=== PATIENT | male | born 1955 | race Caucasian/White ===

== ENCOUNTER 2021-07-04 04:56 | Observation (INO) ==
--- NOTE | 2021-01-27 16:02 | PAT Medication Instructions ---
Medication Instructions Date of Service January 27, 2021 Home Medications amlodipine 10 mg tablet 10 mg PO QAM atorvastatin 40 mg tablet 40 mg PO QAM citalopram 40 mg tablet 40 mg PO QAM furosemide 20 mg tablet 20 mg PO QAM levothyroxine 137 mcg tablet 137 mcg PO QAM losartan 100 mg tablet 100 mg PO QAM metoprolol succinate 25 mg tablet,extended release 24 hr 25 mg PO QAM ibuprofen 200 mg tablet (Advil) 600 mg PO Q6H PRN ASK your surgeon for instructions ibuprofen 200 mg tablet (Advil) 600 mg PO Q6H PRN DO NOT take the morning of surgery furosemide 20 mg tablet 20 mg PO QAM losartan 100 mg tablet 100 mg PO QAM Take morning of surgery With a small sip of water, OTHERWISE NOTHING TO EAT OR DRINK AFTER MIDNIGHT: amlodipine 10 mg tablet 10 mg PO QAM atorvastatin 40 mg tablet 40 mg PO QAM citalopram 40 mg tablet 40 mg PO QAM levothyroxine 137 mcg tablet 137 mcg PO QAM metoprolol succinate 25 mg tablet,extended release 24 hr 25 mg PO QAM Other Notes If you have any questions please call us at [phone] or [phone] or [phone] or [phone]
--- NOTE | 2021-02-02 09:17 | Anesthesiology Consultation ---
Date of Service February 02, 2021 Assessment & Plan (1) Encounter for pre-operative examination: Chart Review Chart Review: Acceptable Risk for Surgery (pending preop Covid testing results ) and Patient NOT seen in Pre Admission Testing Per PAT appt on 02/02/21, patient denies any recent travel or large group activities. No known Covid positive contacts or Covid related symptoms. No known Covid infection in the past 90 days. Pt is vaccinated for Covid. Preop Covid testing scheduled 02/17/21 = will await results. Educated on importance of self quarantining, social distancing and wearing mask in public for the patient one week prior to surgery and after Covid testing done Pt last seen by cardio 02/01/21= seen for routine follow up on LBBB. Pt feeling well and has no cardiac complaints. Suffered recent fall with rib fractures- healing well. Plans for left hip replacement Feb 2021. Patient with mild diffuse cardiomyopathy by echocardiogram. Stress nuclear mobile only fixed abnormalities and no signs of ischemia. Overall functional capacity stable and about 5 METS. Patient on appropriate medical therapies. "No contraindications upcoming surgery as planned" Follow up in six months Teaching & Discussion Pre-Anesthesia Teaching/Discussion Notes: Instructed NPO after midnight before surgery,except medications with 15 cc of water. Medication instructions provided according to the [facility] guidelines. History Surgery Operation Date: 02/21/21 08:50 Proposed Procedures p Total Hip Arthroplasty Uncemented - Lowell Owen MD Height/Weight Height: 6 ft Weight: 141.4 kg Allergies Allergy/AdvReac Type Severity Reaction Status Date / Time oxycodone Allergy Mild rash Verified 01/27/21 13:16 Medications Home Medications Medication Instructions Recorded Confirmed Last Taken amlodipine 10 mg tablet 10 mg PO QAM 01/09/21 01/27/21 01/08/21 atorvastatin 40 mg tablet 40 mg PO QAM 01/09/21 01/27/21 01/08/21 citalopram 40 mg tablet 40 mg PO QAM 01/09/21 01/27/21 01/08/21 furosemide 20 mg tablet 20 mg PO QAM 01/09/21 01/27/21 Unknown levothyroxine 137 mcg tablet 137 mcg PO QAM 01/09/21 01/27/21 01/08/21 losartan 100 mg tablet 100 mg PO QAM 01/09/21 01/27/21 01/08/21 metoprolol succinate 25 mg 25 mg PO QAM 01/09/21 01/27/21 01/08/21 tablet,extended release 24 hr ibuprofen 200 mg tablet (Advil) 600 mg PO Q6H PRN 01/27/21 01/27/21 Unknown Past Medical History Medical History (Updated 02/02/21 @ 12:04 by Che Shaw PA-C) Fracture, ribs S/P FALL-3 RIBS BROKEN-EARLY 01/2021-RESOLVED Denies pain or breathing issues Hyperlipidemia Hypertension LBBB (left bundle branch block) Chronic Prediabetes Per records Sleep apnea CPAP Thyroid disease HYPOTHYROID Exercise / Class Metabolic Activity II 4-5 Yardwork/Stairs/Walk up hill (one flight of stairs - no chest pain or SOB ) Past Surgical History Surgical History History of colonoscopy 2020 Status post right hip replacement Past Anesthesia History No Hx of Anesthesia Complications and No Family Hx of Anesthesia Complications History of PONV No Hx of PONV and No Hx of Motion Sickness Social History Smoking Status: Never smoker Do You Dip or Chew Tobacco: No Hx Alcohol Use: Yes Alcohol type: wine alcohol intake frequency: a few times a week Hx Substance Use: No Review of Systems Patient denies chest pain, shortness of breath, dyspnea on exertion, reflux, cough, wheezing, palpitations. No hx of seizures, stroke, [place]. No hx of blood clots or blood transfusions Physical Exam Vital Signs VITALS BP 144/90 P 70 TEMP 97.9 SP02 94% RESP 16 Constitutional no acute distress ENMT Mouth: no TMJ clicking Thyromental Distance: > or= 3.5 Finger Breadths (3.5) Mallampati Class: II (smaller airway ) Missing molar Neck + short neck, + thick neck and + limited neck extension (minimal ) Respiratory normal respiratory effort; no respiratory distress Auscultation: lungs clear to auscultation bilaterally; no wheezes Cardiovascular Rate/Rhythm: regular rate and regular rhythm Heart Sounds: no murmur Vessels: no carotid bruit Musculoskeletal Spine: no pain with cervical ROM Extremities: extremities normal to inspection Psychiatric Orientation: alert Lab Results Anesthesia Preop Results Results Anesthesia Widget: WBC 6.51 K/uL (4.8-10.8) 01/09/21 Hgb 15.4 g/dL (14.0-18.0) 01/09/21 Hct 45.3 % (42-52) 01/09/21 Plt 233 K/uL (130-400) 01/09/21 Na 137 mmol/L (136-145) 01/09/21 K 4.4 mmol/L (3.5-5.1) 01/09/21 Cl 102 mmol/L (98-107) 01/09/21 CO2 31 mmol/L (21-32) 01/09/21 BUN 13 mg/dl (7-18) 01/09/21 Creat 0.91 mg/dl (0.6-1.4) 01/09/21 Glucose Level 98 mg/dl (70-99) 01/09/21 PT 9.8 Seconds (9.0-12.0) 02/02/21 PTT 27.1 Seconds (21.0-31.0) 02/02/21 INR 1.0 (0.9-1.1) 02/02/21 Urine Color Dark Yellow 01/09/21 Urine Appearance Clear (Clear) 01/09/21 Urine pH 6.0 (4.5-7.5) 01/09/21 Urine Specific Farrar 1.027 (1.000-1.030) 01/09/21 Urine Protein Trace (Negative) H 01/09/21 Urine Glucose (UA) Negative (Negative) 01/09/21 Urine Ketones Trace (Negative) H 01/09/21 Urine Blood Negative (Negative) 01/09/21 Urine Nitrite Negative (Negative) 01/09/21 Urine Bilirubin 1+ (Negative) H 01/09/21 Urine Urobilinogen Negative (Negative) 01/09/21 Urine Leukocyte Esterase Negative (Negative) 01/09/21 Urine WBC (Auto) 1-5 /hpf (0-5) 01/09/21 Urine RBC (Auto) 0-4 /hpf (0-4) 01/09/21 Urine Hyaline Casts (Auto) 1-5 /lpf (0-5) 01/09/21 Urine Epithelial Cells (Auto) 5-10 /lpf (0-5) H 01/09/21 Urine Bacteria (Auto) Negative (Negative) 01/09/21 Blood Type O Negative 02/02/21 Antibody Screen NEGATIVE 02/02/21 Testing Electrocardiogram Date: 06/30/20 Findings: + NSR @ (83bpm) Possible left atrial enlargement. Left axis deviation. LBBB. When compared to EKG from Apr 11, 2020- the axis shifted left per cardio. Chest X-Ray Date: 02/02/21 Findings: + NAD FINDINGS: There is a pectus excavatum deformity. This accounts for the hazy appearance to the right medial lung base on the frontal view. No focal lung consolidations to suggest pneumonia. No evidence for pulmonary edema. The heart is normal in size. No pleural fusions. No pneumothorax. Old posttraumatic changes at the distal left clavicle/acromioclavicular joint. This is also unchanged. IMPRESSION: No significant change compared to the prior study. No acute process. Echocardiogram Date: 04/20/20 EF: 45-49% Other Findings: + LVH (moderate/concentric ) and + diastolic dysfunction (Grade I ) Reason for exam is LBBB LV cavity size is normal. Septal motion is consistent with LBBB. Remaining LV wall segments are borderline HK. LV function mildly reduced. Mild AV sclerosis. Stress Test Date: 05/31/20 Type: nuclear Reason for study: LBBB; EF 45% by recent ECHO There is a medium sized scar involving the inferior and inferior septal sheehan with severe HK of segments. No inducible ischemia is present. Mildly reduced LF function with EF of 47%
--- NOTE | 2021-02-16 22:44 | History and Physical Report ---
DATE OF ADMISSION: 02/21/2021. CHIEF COMPLAINT: Left hip pain. HISTORY OF PRESENT ILLNESS: The patient is a 65-year-old gentleman who is well known to me from a pr evious right hip replacement done on 03/09/2014. Right hip has done great. Over the past 5 years, criss nash has developed increased pain and discomfort in his left hip. He describes groin pain, buttock pain , lateral hip pain radiating down to his knee, but no further. He does have some chronic back pain a s well. No numbness. He has been treated with Advil with minimal relief. He takes occasional Vicod in for his hip. He did have a recent fall and broke some ribs and has recovered from this. He has d ifficulty putting his shoes and socks on. Happy with his right hip and would like to have his left h ip replaced. PAST MEDICAL HISTORY: Significant for, 1. Hypertension. 2. Obesity with a BMI of 42.3. PAST SURGICAL HISTORY: Previous surgeries include right hip replacement done on 03/09/2014. ALLERGIES: PERCOCET. CURRENT MEDICATIONS: Include, 1. Citalopram. 2. Levothyroxine. 3. Atorvastatin. 4. Metoprolol. 5. Losartan. 6. Amlodipine. 7. Furosemide. SOCIAL HISTORY: Significant for a 65-year-old male. He is . He is self employed. He works in [employer]. One to two drinks per day. One child. He does not smoke. FAMILY HISTORY: Significant for heart disease. REVIEW OF SYSTEMS: Negative for diabetes, neurologic problems, vascular problems, or bleeding disord ers. No chest pain or shortness of breath. No history of DVT or PE. PHYSICAL EXAMINATION: GENERAL: Shows a large statured, middle-aged male. HEENT: Benign. NECK: Supple. No lymphadenopathy. LUNGS: Clear to auscultation. HEART: Has a regular rate and rhythm. ABDOMEN: Soft, nontender, nondistended. EXTREMITIES: Grossly neurovascularly intact except as follows: Examination of the left hip reveals the patient walks with a slightly antalgic gait. Leg lengths look pretty equal clinically. He has g ot a very stiff hip with about a 10-degree external rotation contracture. Attempted internal rotatio n creates pain. No knee effusion. He is neurologically intact. Negative straight leg raise. X-RAYS: X-rays of the left hip were reviewed. It shows advanced left hip DJD. He has got complete loss of the superior joint space with fairly concentric disease. He has got osteophytes around the f emoral head and acetabulum. ASSESSMENT: A 65-year-old male with multiple medical comorbidities including hypertension, obesity w ith underlying heart disease, now 6-1/2 years out from right hip replacement with advanced left hip d egenerative joint disease. He has failed conservative treatment and would like to have his left hip replaced. PLAN: We are going to take him to the operating room and do a left total hip replacement. The risks and benefits of this procedure were explained to the patient to include, but not limited to, DVT, PE , , infection, neurological injury, vascular injury, bleeding problem, pain, limited range of mo tion, stiffness, failure to relieve his symptoms, incomplete relief of symptoms, need for further matthias alyse in the future, fracture, leg length inequality, nerve palsy, dislocation, etc. The patient unde rstands and desires to proceed. Informed consent was obtained. Based on his stiffness and x-rays, I do think he is at increased risk for ____. We will probably put him on chronic NSAIDs for 6 weeks postop if he can tolerate that. He knows to take his metoprolol t he morning of surgery. He is planning to be discharged to home I believe with home health. Job ID: [id number]
--- NOTE | 2021-06-30 15:20 | Anesthesiology Consultation ---
Date of Service June 30, 2021 Assessment & Plan (1) Encounter for pre-operative examination: Chart Review Chart Review: Acceptable Risk for Surgery and Patient NOT seen in Pre Admission Testing Pt rescheduled multiple times since seen in PAT on 02/02/21- now scheduled for procedure 07/04/21 Per nursing assessment 06/30/21, patient denies any recent travel. No known Covid positive exposures or Covid related symptoms. No known Covid infection in the past 90 days. Pt is fully vaccinated for Covid. Preop Covid testing done 06/29/21= negative. Preop Covid testing will be five days old by DOS- will order DOS Ortiz test. Will need Ortiz test for overnight stay as well (in case possible roommate) Pt last seen by cardio 02/01/21=seen for routine follow up on LBBB. Pt feeling well and has no cardiac complaints. Suffered recent fall with rib fractures- healing well. Plans for left hip replacement Feb 2021.Patient with mild diffuse cardiomyopathy by echocardiogram. Stress nuclear mobile only fixed abnormalities and no signs of ischemia. Overall functional capacity stable and about 5 METS. Patient on appropriate medical therapies. "No contraindications upcoming surgery as planned" Follow up in six months History Surgery Operation Date: 05/23/21 12:35 Proposed Procedures p Left Total Hip Arthroplasty - Lowell Owen MD Operation Date: 07/04/21 07:00 Proposed Procedures p Left Total Hip Replacement - Lowell Owen MD Operation Date: 07/04/21 07:00 Proposed Procedures p Left Total Hip Replacement - Lowell Owen MD Height/Weight Height: 6 ft 1 in Weight: 140.614 kg Allergies Allergy/AdvReac Type Severity Reaction Status Date / Time oxycodone Allergy Mild rash Verified 06/30/21 14:50 Medications Home Medications Medication Instructions Recorded Confirmed Last Taken amlodipine 10 mg tablet 10 mg PO QAM 01/09/21 06/30/21 01/08/21 atorvastatin 40 mg tablet 40 mg PO QAM 01/09/21 06/30/21 01/08/21 citalopram 40 mg tablet 40 mg PO QAM 01/09/21 06/30/21 01/08/21 furosemide 20 mg tablet 20 mg PO QAM 01/09/21 06/30/21 Unknown levothyroxine 137 mcg tablet 137 mcg PO QAM 01/09/21 06/30/21 01/08/21 losartan 100 mg tablet 100 mg PO QAM 01/09/21 06/30/21 01/08/21 metoprolol succinate 25 mg 25 mg PO QAM 01/09/21 05/01/21 01/08/21 tablet,extended release 24 hr ibuprofen 200 mg tablet (Advil) 600 mg PO Q6H PRN 01/27/21 06/30/21 Unknown meloxicam 15 mg tablet 15 mg PO QAM 05/01/21 06/30/21 Unknown acetaminophen 500 mg capsule 1,000 mg PO TID 30 Days #180 cap 07/01/21 Unknown aspirin 81 mg tablet,delayed 81 mg PO BID 45 Days #90 tab 07/01/21 Unknown release (Adult Aspirin Regimen) hydromorphone 2 mg tablet 2 - 4 mg PO Q6 PRN #40 tab 07/01/21 Unknown ketorolac 10 mg tablet 10 mg PO Q6 #20 tab 07/01/21 Unknown ondansetron HCl 4 mg tablet 4 mg PO Q6 PRN #25 tab 07/01/21 Unknown sennosides 8.6 mg-docusate sodium 1 tab-cap PO DAILY #14 tab 07/01/21 Unknown 50 mg tablet (Senokot-S) tamsulosin 0.4 mg capsule (Flomax) 0.4 mg PO DAILY #7 cap 07/01/21 Unknown Past Medical History Medical History (Updated 06/30/21 @ 15:25 by Che Shaw PA-C) Cardiomyopathy Mild/diffuse per cardio records; EF 45-49% Fracture, ribs S/P FALL-3 RIBS BROKEN-EARLY 01/2021-RESOLVED Denies pain or breathing issues Hyperlipidemia Hypertension Hypothyroidism LBBB (left bundle branch block) Chronic Prediabetes Per records-PT DENIES Sleep apnea CPAP Past Family History Family History Other No family history of adverse response to anesthesia Past Surgical History Surgical History History of colonoscopy 2020 Status post right hip replacement Social History Smoking Status: Never smoker Do You Dip or Chew Tobacco: No Hx Alcohol Use: Yes Alcohol type: wine alcohol intake frequency: a few times a week substance use type: does not use Lab Results Anesthesia Preop Results Results Anesthesia Widget: WBC 6.12 K/uL (4.8-10.8) 06/29/21 Hgb 16.2 g/dL (14.0-18.0) 06/29/21 Hct 47.2 % (42-52) 06/29/21 Plt 234 K/uL (130-400) 06/29/21 Na 139 mmol/L (136-145) 06/29/21 K 4.2 mmol/L (3.5-5.1) 06/29/21 Cl 102 mmol/L (98-107) 06/29/21 CO2 29 mmol/L (21-32) 06/29/21 BUN 16 mg/dl (6-23) 06/29/21 Creat 0.94 mg/dl (0.6-1.4) 06/29/21 Glucose Level 95 mg/dl (70-99(Fasting)) 06/29/21 PT 9.8 Seconds (9.0-12.0) 06/29/21 PTT 27.7 Seconds (21.0-31.0) 06/29/21 INR 1.0 (0.9-1.1) 06/29/21 Blood Type O Negative 06/29/21 Antibody Screen NEGATIVE 06/29/21 Testing Electrocardiogram Date: 06/29/21 Findings: + NSR @ (82bpm) Left axis deviation, LBBB. Chest X-Ray Date: 02/02/21 Findings: + NAD FINDINGS: There is a pectus excavatum deformity. This accounts for the hazy appearance to the right medial lung base on the frontal view. No focal lung consolidations to suggest pneumonia. No evidence for pulmonary edema. The heart is normal in size. No pleural fusions. No pneumothorax. Old posttraumatic changes at the distal left clavicle/acromioclavicular joint. This is also unchanged. IMPRESSION: No significant change compared to the prior study. No acute process. Echocardiogram Date: 04/20/20 EF: 45-49% Other Findings: + LVH (moderate/concentric ) and + diastolic dysfunction (Grade I ) Reason for exam is LBBB LV cavity size is normal. Septal motion is consistent with LBBB. Remaining LV wall segments are borderline HK. LV function mildly reduced. Mild AV sclerosis. Stress Test Date: 05/31/20 Type: nuclear Reason for study: LBBB; EF 45% by recent ECHO There is a medium sized scar involving the inferior and inferior septal sheehan with severe HK of segments. No inducible ischemia is present. Mildly reduced LF function with EF of 47%
--- NOTE | 2021-07-01 10:25 | History and Physical Report ---
DATE OF ADMISSION: 07/04/2021. CHIEF COMPLAINT: Left hip pain. HISTORY OF PRESENT ILLNESS: The patient is a 65-year-old gentleman [facility] Over the past several years, he has developed increased pain and discomfort in his left hip. He describes groin pain, buttock pain, lateral hip pain radiating d own to his knee, but no further. He has got some chronic back issues. Denies any numbness. He has difficulty putting his shoes and socks on. He has been taking Advil with minimal relief. He occasio fernando takes Vicodin. He has had some falls as it is related to his hip pain and stiffness. He limps more as the day goes on. He has nighttime pain. Difficulty putting his shoes and socks on. Happy with his right hip and would like to have his left hip replaced. PAST MEDICAL HISTORY: 1. Hypertension. 2. Obesity with a BMI of 42.3. PAST SURGICAL HISTORY: Includes right hip replacement done on 03/09/2014. ALLERGIES: PERCOCET. CURRENT MEDICATIONS: Include: 1. Citalopram. 2. Levothyroxine. 3. Atorvastatin. 4. Metoprolol. 5. Losartan. 6. Amlodipine. 7. Furosemide. SOCIAL HISTORY: Significant for a male. He is 65. Self employed. He works in [employer]. One drinks per day. One child. Does not smoke. FAMILY HISTORY: No heart disease. REVIEW OF SYSTEMS: Negative for diabetes, neurologic problem, vascular problem, or bleeding disorder s. No chest pain or shortness of breath. No history of DVT or PE. PHYSICAL EXAMINATION: GENERAL: Shows a fairly large middle-aged male. Looks to be in reasonably good health. HEENT: Benign. NECK: Supple. No lymphadenopathy. LUNGS: Clear to auscultation. HEART: Has a regular rate and rhythm. ABDOMEN: Soft, nontender, nondistended. EXTREMITIES: Grossly neurovascularly intact except as follows. Examination of the left hip revealed patient walks with a bit of a limp. Leg lengths appear clinical ly pretty equal. He has got a very stiff hip with internal rotation to -10. This re-creates his liz n. He has no knee effusion. Negative straight leg raise. He is neurologically intact. X-RAYS: X-rays of the left hip are reviewed. It shows advanced left hip DJD. He has got fairly con centric disease. He has got osteophytes around the femoral head and acetabulum. Right hip replaceme nt looks to be in good position. ASSESSMENT: A 65-year-old gentleman 6-1/2 years out from right hip replacement with advanced left hi p degenerative joint disease. He has failed conservative treatment and would like to have his left h ip fixed. PLAN: We will take him to the operating room and do left total hip replacement. The risks and benef its of this procedure were explained to the patient include but not limited to DVT, PE, , infect ion, neurological injury, vascular injury, bleeding problem, pain, limited range of motion, stiffness , incomplete relief of symptoms, need for further surgery in the future, fracture, leg length inequal ity, nerve palsy, etc. The patient understands and desires to proceed. Informed consent was obtaine d. Medicines none. Work or ____ restrictions, no restrictions at this time. Return visit 2 weeks p staci. Job ID: [id number]
[~2021-07-04 04:56] MED LIST: ACETAMINOPHEN 500 MG TAB PO SCH; FAMOTIDINE 20 MG TAB PO SCH; GABAPENTIN 300 MG CAP PO SCH; LR 500ML BOLUS, THEN 15ML/HR IV SCH; LR 60ML/HR IV SCH; METOCLOPRAMIDE HCL 10 MG TABLET PO SCH; Scopolamine 1 MG TDSY TD SCH; Scopolamine CHECK PATCH PLACEMENT SCH; TRANEXAMIC ACID 1,000 MG **IV Intra-op IV SCH; TRANEXAMIC ACID 1,000 MG **IV Pre-op IV SCH
[2021-07-04] MEDS ORDERED: METOCLOPRAMIDE HCL 10 MG TABLET PO SCH (06:00)
[2021-07-04] MEDS ORDERED: FAMOTIDINE 20 MG TAB PO SCH (06:00)
[2021-07-04] MEDS ORDERED: LR 500ML BOLUS, THEN 15ML/HR IV SCH (06:00)
[2021-07-04] MEDS ORDERED: TRANEXAMIC ACID 1,000 MG **IV Pre-op IV SCH (06:00)
[2021-07-04] MEDS ORDERED: ACETAMINOPHEN 500 MG TAB PO SCH (06:00)
[2021-07-04] MEDS ORDERED: TRANEXAMIC ACID 1,000 MG **IV Intra-op IV SCH (06:00)
[2021-07-04] MEDS ORDERED: LR 60ML/HR IV SCH (06:00)
[2021-07-04] MEDS ORDERED: Scopolamine 1 MG TDSY TD SCH (06:00)
[2021-07-04] MEDS ORDERED: GABAPENTIN 300 MG CAP PO SCH (06:00)
[2021-07-04] MEDS ORDERED: BUPIVACAINE 0.5 % 5 MG/1 ML PF 10ML VIAL ONE (06:35)
[2021-07-04] MEDS ORDERED: EPINEPHrine INJ 1 MG/ML AMP ONE (06:38)
[2021-07-04] MEDS ORDERED: BUPIVACAINE 0.5 % 5 MG/1 ML MPF 30ML VIAL ONE (06:38)
[2021-07-04] MEDS ORDERED: MoRPHine SULFATE PF 1 MG/ML 10 ML AMP/VIAL ONE (06:46)
[2021-07-04] MEDS ORDERED: PROPOFOL IV EMULSION 10 MG/ML 20 ML VIAL IV ONE ×2 (06:46→08:55)
[2021-07-04] MEDS ORDERED: ONDANSETRON INJ 2 MG/ML 2 ML VIAL ONE (06:46)
[2021-07-04] MEDS ORDERED: MIDAZOLAM HCL 1 MG/ML 2ML VIAL ONE ×2 (06:47→06:50)
[2021-07-04] MEDS ORDERED: fentaNYL citrate 100 MCG/2 ML VIAL ONE (06:47)
--- NOTE | 2021-07-04 06:59 | History & Physical Bridge Note ---
Date of Service July 04, 2021 History & Physical Bridge Note I have examined the patient, reviewed the History & Physical and in the interval since the performance of the History & Physical I have noted the following changes of clinical significance: no changes noted
[2021-07-04] MEDS ORDERED: MoRPHine SULFATE PF 1 MG/ML 10 ML AMP/VIAL INT SPINAL ONE (07:18)
[2021-07-04] MEDS ORDERED: NALOXONE HCL 0.4 MG/1 ML VIAL/CARP IV PRN ×2 (07:18→10:17)
[2021-07-04] MEDS ORDERED: NALBUPHINE HCL INJ 10 MG/ML AMP IV PRN (07:18)
[2021-07-04] MEDS ORDERED: LACTATED RINGER'S 500 ML IV PRN (07:18)
[2021-07-04] MEDS ORDERED: diphenhydrAMINE 50 MG/ML VIAL IV PRN (07:18)
[2021-07-04] MEDS ORDERED: PROMETHAZINE HCL 25 MG in SODIUM CHLORIDE 0.9% 50 ML IV PRN (07:18)
[2021-07-04] MEDS ORDERED: ONDANSETRON INJ 2 MG/ML 2 ML VIAL IV PRN (07:18)
[2021-07-04] MEDS ORDERED: NALOXONE HCL 0.08 MG in SYRINGE 1.8 ML IV PRN (07:18)
[2021-07-04] MEDS ORDERED: ePHEDrine sulfate 50 MG/ML AMP IV PRN (07:18)
[2021-07-04] MEDS ORDERED: NALOXONE HCL 1 MG in SODIUM CHLORIDE 0.9% 1000ML 1,000 ML IV PRN (07:18)
[2021-07-04] MEDS ORDERED: SODIUM CHLORIDE 0.9% 1000ML 1,000 ML IV SCH (07:30)
[2021-07-04] MEDS ORDERED: NO NARCOTICS OR SEDATIVES SCH (07:30)
[2021-07-04] MEDS ORDERED: PHENYLEPHRINE HCL 10 MG/ML VIAL ONE (08:42)
[2021-07-04] MEDS ORDERED: ePHEDrine sulfate 50 MG/ML SYR ONE (08:42)
[2021-07-04] MEDS ORDERED: VASOPRESSIN 20 UNIT/ML VIAL ONE (08:42)
[2021-07-04] MEDS ORDERED: PHENYLEPHRINE 100MCG/ML 5ML SYR ONE (08:42)
--- NOTE | 2021-07-04 09:11 | Operative Report ---
Post Operative Report Pre & Post Diagnosis Operation Date: 05/23/21 12:35 <No data on this case meets the specified criteria> Operation Date: 07/04/21 07:00 <No data on this case meets the specified criteria> Operation Date: 07/04/21 07:00 Pre-Op Diagnosis: Left Hip Advanced Degenerative Joint Disease Post-Op Diagnosis: Left Hip Advanced Degenerative Joint Disease I identified the patient and participated in the time-out.: Yes Procedure Operation Date: 05/23/21 12:35 <No data on this case meets the specified criteria> Operation Date: 07/04/21 07:00 <No data on this case meets the specified criteria> Operation Date: 07/04/21 07:00 Actual Procedures p Left Total Hip Arthroplasty--Uncemented(Left) - Lowell Owen MD Surgeon Lowell Owen MD Charger Operator Helper Berhane Baca PA-C Estimated Blood Loss 200 Findings Consistent with Post-Op Diagnosis Operative findings revealed advanced left hip DJD. He had grade 4 [id number] disease the femoral head and acetabulum. He did complete the wear of the cartilage at the superior aspect of the acetabulum with eburnation and punctate hemorrhage. He had a anterior acetabular osteophyte. Moderate-sized joint effusion. Fluids 1100 cc Specimens Left femoral head sent for pathology Drains None Anesthesia Type Spinal MAC Complications none Disposition Accompanied Patient To Recovery: Yes Indications Patient is 65-year-old very large gentleman has had a long history of hip problems. He had his right hip replaced about 7 years ago and is done well from this. Over the past several years he developed increased pain discomfort stiffness in his left hip. X-rays show advanced hip arthritis. Failed conservative measures. He has been scheduled for hip surgery several times but canceled due to the Covid epidemic. He is now desiring to proceed with hip surgery. Description of Procedure Operative implants consist of: 1. Biomet G7 size 58 mm acetabular shell. 2. 6.5 cancellous acetabular screws 135 mm length 1 to 25 mm length. 3. [place] hole optoelectronic technician. 4. Highly cross-linked polyethylene liner with a 58 mm outer diameter 36 mm inner diameter. 5. DePuy [place] size 13 KLA femoral stem. 6. +8.5/36 mm ceramic articular ball. The patient was taken the operating, identified, placed on the operating table supine position but a contractors were properly padded. IV antibiotics tried by anesthesia team. A spinal anesthetic and been implemented holding area. [place] catheter was placed in sterile fashion with the patient then placed in the right lateral decubitus position. An axillary roll was placed. [place]berg hip positioner was used for positioning. The left hip and leg were then prepped and draped in usual sterile fashion. A posterior lateral approach to the left hip was then performed to a curvilinear incision centered over the greater trochanter. Sharp dissection was carried through subcutaneous tissues down to the IT band gluteal fascia. The IT band gluteal fascia were then incised longitudinally in line with skin incision. The underlying greater trochanter bursa was excised. The piriformis and external rotators and the posterior hip joint capsule were then released as a single layer taking great care to protect the sciatic nerve at all times. Hip was internally rotated and dislocated. Femoral neck osteotomy cut was made with Final Cut about 9 mm above the lesser trochanter. Femur was retracted anteriorly. Attention drawn the acetabulum. The acetabular labrum was excised. The pulmonary fat was excised. Sequential reaming the acetabular was then performed beginning with a size 51 and progressing up to a 57. I did reamed a little bit with a 58 reamer and then placed a 58 mm Biomet G7 acetabular shell in about 40 degrees lateral opening and 20 degrees of anteversion. It was fixed with two 6.5 cancellous acetabular screws. A trial liner was placed. A simple anterior osteophytes were removed. Attention drawn the femur. The proximal femur was entered with a cookie-cutter followed by canal finder. I then broached begin the size 8 and progressing up to a 13. Got excellent fit at 13. We then trialed the hip and the +5 articular ball provide full stability but the soft tissue tension seemed a bit lax and we elect to place the +8.5. I felt this recreated better soft tissue tension. It was also extremely stable in full extension and external rotation flexion to 90 degrees internal rotation over 50 degrees. Leg lengths seem equal. We elect to place these implants. All trial implants were removed. An apex hole optoelectronic technician was placed. Highly c ross-linked polyethylene liner was placed. A DePuy size 13 KLA femoral stem was impacted in position. A +8.5/36 mm ceramic articular ball was placed. Hip was located once again found to be stable. Attention drawn toward closing. The wound was irrigated with closed muscle pulsatile lavage solution. We did inject with 30 cc of half percent Marcaine with epinephrine. The posterior capsule and external rotators were repaired through drill holes in the posterior trochanter as a single layer with #2 Tycron suture. The IT band gluteal fascia then closed with #1 PDS suture running fashion for subcutaneous tissues then closed in 2 layers the deep layer #1 Vicryl suture and subcutaneous tissues with 2-0 Dexon suture in a buried interrupted fashion. Skin was closed skin juliann. Leg was then cleaned and dried a sterile dressing was Xeroform, 4 x 4's, sterile ABD pad, foam tape was applied. The patient then transferred to the recovery room in stable condition. Patient tolerated the procedure well and there were no complications. Berhane Baca, my physician assistant to the dean, was present for the entire procedure. His assistance was essential and required for appropriate patient positioning, prepping and draping, surgical exposure, performing the technical details of the operation, placement the implants, closure of the wound, and placement of the sterile bandage. I attest to the content of the Intraoperative Record and any orders documented therein. Any exceptions are noted below.
--- NOTE | 2021-07-04 09:38 | Anesthesiology Progress Note ---
Date of Service July 04, 2021 Anesthesia Post Procedure Vital Signs Vital Signs: Temp Pulse Pulse Resp BP Pulse Ox 07/04/21 09:35 70 14 111/65 97 07/04/21 09:25 71 13 126/64 100 07/04/21 09:15 69 15 121/64 100 07/04/21 09:05 70 13 125/68 100 07/04/21 08:58 36.4 C L 73 22 107/64 98 07/04/21 05:38 36.8 C 91 H 20 171/94 H 94 Transfer of Care Handoff Completed per policy Notes Mental Status: alert / awake / arousable Patient Amnestic to Procedure: Yes Nausea / Vomiting: adequately controlled Pain: adequately controlled Airway Patency, RR, SpO2: stable & adequate BP & HR: stable & adequate Hydration State: stable & adequate Neuraxial Anesthesia: was administered and sensory block is resolving Anesthetic Complications: no major complications apparent
--- NOTE | 2021-07-04 09:49 | XRay Report ---
XR hip 1V LT w pelvis CLINICAL HISTORY: IN PACU - A/P PELVIS and LATERAL HIP TECHNIQUE: 2 views of the left hip and single frontal view of the pelvis were obtained. Comparison: Comparison is made to hip radiographs 04/22/2014 FINDINGS: Bilateral total hip arthroplasties are seen. The alignment is anatomic. Joint spaces are well-preserv ed. No soft tissue abnormality is seen. IMPRESSION: No evidence of acute osseous injury. Status post bilateral total hip arthroplasties. ACT 112: Negative or not required by law. Electronically signed by: Glenn Marroquin M.D. 07/04/2021 9:47 AM
[2021-07-04] MEDS ORDERED: bisacodyL 10 MG SUPP PR PRN (10:17)
[2021-07-04] MEDS ORDERED: MAGNESIUM HYDROXIDE SUSP 30 ML UDC PO PRN (10:17)
[2021-07-04] MEDS ORDERED: DOCUSATE SODIUM/SENNA 50/8.6MG TAB PO SCH (10:17)
[2021-07-04] MEDS ORDERED: ALUMINUM/MAGNESIUM SUSP 30 ML UDC PO PRN (10:17)
[2021-07-04] MEDS ORDERED: INFLUENZA VACCINE HIGH DOSE PF 65+ 0.7 ML SYR IM ONE (10:45)
[2021-07-04] MEDS: SODIUM CHLORIDE 0.9% 1000ML 1,000 ML IV SCH ×2 (10:52→21:24)
[2021-07-04] MEDS: TAMSULOSIN HCL 0.4 MG CAP PO SCH (11:34)
[2021-07-04] MEDS: LOSARTAN POTASSIUM 50 MG TAB PO SCH (11:34)
[2021-07-04] MEDS: ATORVASTATIN 40 MG TAB PO SCH (11:35)
[2021-07-04] MEDS: MULTIVITAMIN TAB PO SCH (11:35)
[2021-07-04] MEDS: LEVOTHYROXINE SODIUM 137 MCG TABLET PO SCH (11:35)
[2021-07-04] MEDS: amLODIPine BESYLATE 5 MG TAB PO SCH (11:35)
[2021-07-04] MEDS: CITALOPRAM 40 MG TAB PO SCH (11:35)
[2021-07-04] MEDS: DOCUSATE SODIUM 100 MG CAP PO SCH ×2 (11:35→21:21)
[2021-07-04] MEDS: METOPROLOL SUCC 25MG EXT REL TAB PO SCH (11:35)
--- NOTE | 2021-07-04 12:16 | Electrocardiogram Report ---
Test Reason : Blood Pressure : / mmHG Vent. Rate : 085 BPM Atrial Rate : 085 BPM P-R Int : 194 ms QRS Dur : 142 ms QT Int : 412 ms P-R-T Axes : 045 -41 118 degrees QTc Int : 490 ms Normal sinus rhythm Left axis deviation Left bundle branch block Abnormal ECG When compared with ECG of 29-JUN-2021 11:20, No significant change was found Confirmed by Thomas Bhatia ([id number]) on 07/04/2021 12:16:39 PM Referred By: Lowell Owen Confirmed By:Christ Bhatia
[2021-07-04] MEDS: ceFAZolin 2000MG 2,000 MG/15 ML SYR IV SCH ×2 (14:26→22:45)
[2021-07-04] MEDS: ACETAMINOPHEN 500 MG TAB PO SCH ×2 (14:29→21:21)
[2021-07-04] MEDS ORDERED: TRANEXAMIC ACID / 0.7% NACL 1,000 MG/100 ML BAG IV SCH (15:00)
[2021-07-04] MEDS: FUROSEMIDE 20 MG TAB PO SCH (15:35)
[2021-07-04] MEDS: Scopolamine CHECK PATCH PLACEMENT SCH ×2 (15:36→23:44)
[2021-07-04] MEDS: ASCORBIC ACID 500 MG TAB PO SCH (17:08)
[2021-07-04] MEDS ORDERED: SENNA 8.6 MG TAB PO SCH (21:00)
[2021-07-04] MEDS: ASPIRIN 81 MG ECTAB PO SCH (21:21)
[2021-07-05] MEDS ORDERED: METOCLOPRAMIDE HCL INJ 5 MG/ML 2 ML VIAL IV PRN (01:19)
[2021-07-05] MEDS ORDERED: diphenhydrAMINE Capsule 25 MG CAP PO PRN (01:19)
[2021-07-05] MEDS ORDERED: DC INTRASPINAL MORPHINE SCH (01:19)
[2021-07-05] MEDS ORDERED: HYDROmorphone INJ 0.5 MG/0.5 ML SYR IV PRN (01:19)
[2021-07-05] MEDS ORDERED: ONDANSETRON INJ 2 MG/ML 2 ML VIAL IV PRN (01:19)
[2021-07-05] MEDS: HYDROmorphone HCL 2 MG TAB PO PRN ×2 (03:52→04:38)
[2021-07-05] MEDS: KETOROLAC TROMETHAMINE 15 MG/ML VIAL IV SCH ×2 (05:47→12:06)
[2021-07-05] MEDS: ACETAMINOPHEN 500 MG TAB PO SCH (05:47)
[2021-07-05] MEDS: LEVOTHYROXINE SODIUM 137 MCG TABLET PO SCH (05:47)
[2021-07-05 06:37] LABS: Basophils # (auto) 0.02 K/uL (0-0.2); Basophils % (auto) 0.3 %; Eosinophils # (auto) 0.03 K/uL (0-0.5); Eosinophils % (auto) 0.4 %; Hematocrit (blood only) 37.5 % (42-52); Hemoglobin 12.6 g/dL (14.0-18.0); Immature Granulocytes # (auto) 0.02 K/uL (0.00-0.02); Immature Granulocytes % (auto) 0.3 %; Lymphocytes % (auto) 12.9 %; Mean Corpuscular Hemoglobin 33.6 pg (25-34); Mean Corpuscular Hgb Conc 33.6 g/dL (32-36); Mean Platelet Volume 10.3 fL (7.4-10.4); Monocytes # (auto) 0.83 K/uL (0.11-0.59); Monocytes % (auto) 10.7 %; Neutrophils # (auto) 5.87 K/uL (1.4-6.5); Neutrophils % (auto) 75.4 %; Platelet Count 206 K/uL (130-400); RDW Coefficient of Variation 12.2 % (11.5-14.5); Red Blood Count 3.75 M/uL (4.7-6.1); White Blood Count 7.77 K/uL (4.8-10.8)
[2021-07-05 06:55] LABS: BUN Creatinine Ratio 17.6 (10-20); Calcium 8.7 mg/dl (8.5-10.1); Creatinine Clr Calc Pharmacy 107.8 ml/min; Est GFR (Non-African American) 76.8 ml/min; Potassium 4.1 mmol/L (3.5-5.1)
[2021-07-05 06:56] LABS: RBC Morphology Unremarkable
[2021-07-05] MEDS ORDERED: dexAMETHasone 10 MG in SYRINGE 0 ML IV SCH (08:00)
[2021-07-05] MEDS: ASCORBIC ACID 500 MG TAB PO SCH (08:09)
[2021-07-05] MEDS: amLODIPine BESYLATE 5 MG TAB PO SCH (08:09)
[2021-07-05] MEDS: FUROSEMIDE 20 MG TAB PO SCH (08:10)
[2021-07-05] MEDS: CITALOPRAM 40 MG TAB PO SCH (08:10)
[2021-07-05] MEDS: ASPIRIN 81 MG ECTAB PO SCH (08:10)
[2021-07-05] MEDS: MULTIVITAMIN TAB PO SCH (08:10)
[2021-07-05] MEDS: TAMSULOSIN HCL 0.4 MG CAP PO SCH (08:10)
[2021-07-05] MEDS: LOSARTAN POTASSIUM 50 MG TAB PO SCH (08:10)
[2021-07-05] MEDS: METOPROLOL SUCC 25MG EXT REL TAB PO SCH (08:10)
[2021-07-05] MEDS: ATORVASTATIN 40 MG TAB PO SCH (08:10)
[2021-07-05] MEDS: DOCUSATE SODIUM 100 MG CAP PO SCH (08:10)
[2021-07-05] MEDS: Scopolamine CHECK PATCH PLACEMENT SCH (08:11)
--- NOTE | 2021-07-05 11:46 | Progress Notes ---
DATE OF SERVICE: 07/05/2021. SUBJECTIVE: A 65-year-old gentleman now postoperative day 1 from a left hip replacement. He is doin g pretty well. Had a pretty rough night as he really refused to take much pain medicines. He is doi ng much better this morning. He has been up and walked around some. No chest pain or shortness of b reath. Not feeling dizzy or lightheaded. OBJECTIVE: VITAL SIGNS: Temperature 36.9. Vital signs are stable. PHYSICAL EXAMINATION: GENERAL: Shows a pleasant middle-aged male. He is lying in bed, looks pretty comfortable this morni ng. LUNGS: Clear to auscultation. HEART: Regular rate and rhythm. ABDOMEN: Soft, nontender, nondistended. EXTREMITIES: Grossly neurovascularly intact except as follows: Examination of the left leg reveals the leg to be well aligned. The dressing is clean, dry and intact. Thigh is soft and supple. He ca n dorsiflex and plantarflex his foot appropriately. He is neurologically intact. LABORATORY DATA: Hemoglobin 12.6. Hematocrit 37.5. Electrolytes are stable. ASSESSMENT: A 65-year-old gentleman, postoperative day 1 from a left hip replacement, doing pretty w ell. Pretty rough night, but doing much better now. His hip is located. He is neurologically intac t. PLAN: 1. DVT prophylaxis includes thigh-high TEDs, SCDs, and aspirin twice a day. 2. PT/OT. He can weight bear as tolerated in the left lower extremity. 3. Pain control, doing okay with current pain regimen. 4. Disposition: We will see how he does in therapy today. The plan is to discharge to home. He is going to just do therapy on his own. We will see how therapy goes today. If he is moving around [facility] and his pain is controlled, we will get him home. Job ID: [id number]
--- NOTE | 2021-07-14 13:29 | Discharge Summary ---
Date of Service July 14, 2021 Discharge Data Procedures Performed Operation Date: 05/23/21 12:35 <No data on this case meets the specified criteria> Operation Date: 07/04/21 07:00 <No data on this case meets the specified criteria> Operation Date: 07/04/21 07:00 Actual Procedures p Left Total Hip Arthroplasty--Uncemented(Left) - Lowell Owen MD Hospital Course (1) History of total left hip replacement: This patient is a 65 year old admitted on 07/04/21 and underwent total hip arthroplasty. He tolerated the procedure well and there were no complications. Transferred to the PACU post op and later to the orthopedic floor for further care. He was given ancef for antibiotic prophylaxis. He was also given AVTAR stockings, SCDs, and aspirin for DVT prophylaxis. Hemoglobin, hematocrit, and vital signs were monitored during his hospital stay and remained stable. Did not require any blood transfusions. There were no complications during his hospital stay. By post op day #1 the patient was tolerating a regular diet, pain was reasonably controlled with oral pain medicine, and he was participating in physical therapy . On post op day #1 the patient was discharged home. He was given printed discharge instructions including prescriptions for extra strength tylenol, aspirin, toradol, hydromorphone,and zofran. Continue physical therapy, weight bearing as tolerated. Continue hip precautions. Continue AVTAR stockings. Follow up approximately 2 weeks post op or sooner if there are problems or concerns. Coding Level of Care Code None Diagnoses History of total left hip replacement Z96.642
== END 2021-07-05 12:58 | disposition home or self-care (01) ==
LOC: ASU 04:56 → 3E 04:56
DX: Z68.42 Body mass index [BMI] 45.0-49.9, adult; Z79.890 Hormone replacement therapy; E66.9 Obesity, unspecified; G47.30 Sleep apnea, unspecified; E03.9 Hypothyroidism, unspecified; I10 Essential (primary) hypertension; Z79.899 Other long term (current) drug therapy; M16.12 Unilateral primary osteoarthritis, left hip; I42.9 Cardiomyopathy, unspecified; Z88.8 Allergy status to other drugs, medicaments and biological substances; Z79.82 Long term (current) use of aspirin; E78.5 Hyperlipidemia, unspecified; I44.7 Left bundle-branch block, unspecified; R73.03 Prediabetes